=== PATIENT | male | born 1945 | race Caucasian/White ===

== ENCOUNTER 2021-12-18 06:55 | Inpatient (IN) | payer MEDICARE, BC ==
[2021-12-15 15:47] LABS: BASOPHILS % (AUTO) 0.4 % (0-1); EOSINOPHILS # (AUTO) 0.1 X10'3 (0-0.9); EOSINOPHILS % (AUTO) 1.2 % (0-6); LYMPHOCYTES % (AUTO) 17.6 % (21-51); MEAN CORPUSCULAR HEMOGLOBIN 31.1 PG (27.0-31.0); MEAN CORPUSCULAR HGB CONC 33.3 g/dL (33.0-36.5); MEAN CORPUSCULAR VOLUME 93.5 FL (78-98); MEAN PLATELET VOLUME 9.8 FL (7.4-10.4); MONOCYTES # (AUTO) 0.5 X10'3 (0-0.9); MONOCYTES % (AUTO) 9.7 % (2-12); NEUTROPHILS # (AUTO) 3.9 X10'3 (1.8-7.7); NEUTROPHILS % (AUTO) 71.1 % (42-75); PRE OP HEMATOCRIT 40.5 % (42.0-52.0); PRE OP HEMOGLOBIN 13.5 g/dL (14.0-17.9); PRE OP PLATELET COUNT 156 X10'3 (140-440); RED BLOOD COUNT 4.33 X10'6 (4.70-6.10); RED CELL DISTRIBUTION WIDTH 15.2 % (11.5-14.5)
[2021-12-15 15:47] LABS: CLARITY,URINE CLEAR (Clear); COLOR,URINE YELLOW (Yellow); GLUCOSE, URINE NEGATIVE (Neg); KETONES,URINE NEGATIVE (Neg); LEUKOCYTE ESTERASE ,URINE NEGATIVE (Neg); NITRITES, URINE NEGATIVE (Neg); OCCULT BLOOD,URINE NEGATIVE (Neg); PH,URINE 5.5 (4.8-8.0); PROTEIN,URINE NEGATIVE (Neg); UROBILINOGEN,URINE 0.2 E.U/dL (0.2-1.0)
[2021-12-15 15:51] LABS: UA COLLECTION TYPE CLN CATCH MIDSTREAM
[2021-12-15 15:55] LABS: PRE OP INR 1.1 INR; PRE OP PROTIME 11.3 SECONDS (9.0-12.0)
[2021-12-15 16:03] LABS: HEMOGLOBIN A1C 6.3 % (4.5-6.2)
[2021-12-15 16:48] LABS: ALBUMIN 3.5 G/DL (3.4-5.0); ALBUMIN/GLOBULIN RATIO 0.9 (1.1-1.5); ALKALINE PHOSPHATASE 78 IU/L (46-116); BLOOD UREA NITROGEN 37 MG/DL (7-18); BUN/CREATININE RATIO 31.9 (5.4-32.0); CALCIUM 8.5 MG/DL (8.5-10.1); CHLORIDE 98 MMOL/L (99-107); CREATININE 1.16 MG/DL (0.60-1.10); PRE OP ALT 32 U/L (30-65); PRE OP ANION GAP 6 (8-16); PRE OP AST 25 U/L (10-37); PRE OP BILIRUB, TOTAL 0.9 MG/DL (0.0-1.0); PRE OP GLUCOSE 89 MG/DL (70-104); PRE OP POTASSIUM 4.5 MMOL/L (3.4-5.1); PRE OP SODIUM 134 MMOL/L (135-145); TOTAL CARBON DIOXIDE 30.2 MMOL/L (24-32); TOTAL PROTEIN 7.2 G/DL (6.4-8.2); eGFR 62 ML/MIN
[2021-12-18] VITALS (19 sets, daily range): BP systolic 95–115; BP diastolic 55–75
[~2021-12-18] VITALS: Ht 175.3 cm; Wt 70.9 kg
[2021-12-18 06:22] LABS: ABG BASE EXCESS -0.1 mmol/L (-2.0-2.0); ABG PCO2 (T) 37.6 mmHg (35.0-48.0); ABG PO2 (T) 91.4 mmHg (75.0-100.0); ALLEN'S TEST POSITIVE; FCOHb 0.1 % (0.0-3.9); FMetHb 0.1 % (0.0-1.5); FO2Hb 96.8 % (94-97); TOTAL HEMOGLOBIN 13.9 G/dl (14.0-18.0)
[~2021-12-18 06:55] MED LIST: ATOR10TA70 PO; BUDE10.22 INH; CALC250T2 PO; CARV6.253 PO; CELE-85 PO; CLON-371 PO; CYAN10006 IM; DOCUMENT DATE & TIME OF BETA-BLOCKER PO ONE; ESZO3TAB44 PO; FERR324T23 PO; FLO0.4C PO; FLUT1BLS4 INH; FURO40TA4 PO; LEVO150T PO; LIDO700A47 TOP; LISI10TA27 PO; METH-603 PO; NITR0.4T48 SL; OMEP20CA16 PO; POTASSIUM CHLORIDE PO; RIVA20TA PO; SPIR25TA5 PO; VITAMIN D PO; ceFAZolin 1000mg inj ONE; ceFAZolin inj. 2,000 MG in dextrose 5%-water 100 ML IV ONE; epiNEPHrine 1 mg/ml inj ONE; famotidine 20mg tablet PO ONE; gabapentin 300mg capsule PO ONE; mupirocin 2% nasal ointment 1gm UD NS ONE; ringers solution, lacted 1,000 ML IV SCH; vancomycin/NS 1 GM in NS 250 ML IV ONE
[2021-12-18] MEDS ORDERED: isoflurane 100ml inhalation liquid IH ONE (10:40)
[2021-12-18] MEDS ORDERED: rocuronium 10mg/ml inj IV ONE ×2 (10:40→11:19)
[2021-12-18] MEDS ORDERED: DOBUTamine/D5W 500mg/250ml premix IV ONE (10:40)
[2021-12-18] MEDS ORDERED: NORepinephrine 8 MG in NS 250 ML BAG (32 mcg/ml) IV ONE (10:40)
[2021-12-18] MEDS ORDERED: SUfentanil 50mcg/ml 1ml amp IV ONE (10:44)
[2021-12-18] MEDS ORDERED: LORazepam 2 mg/ml vial ONE (10:51)
[2021-12-18] MEDS ORDERED: midazolam 1 mg/ML 2ml injection ONE (10:54)
[2021-12-18] MEDS ORDERED: etomidate 2mg/ml inj. ONE (11:19)
[2021-12-18] MEDS ORDERED: albumin (human) 25% 100 ML IV solution IV ONE (11:30)
[2021-12-18] MEDS ORDERED: LIDOcaine 2% (20 mg/ml) 5ml cardiac syringe ONE (11:30)
[2021-12-18] MEDS ORDERED: mannitol 12.5gm/50mL VIAL IV ONE (11:30)
[2021-12-18] MEDS ORDERED: heparin 1,000 units/ml 10ml inj ONE (11:30)
[2021-12-18] MEDS ORDERED: aminocaproic acid 250 MG/1 ML inj. ONE (11:30)
[2021-12-18] MEDS ORDERED: magnesium sulf 1 GM/2 ML ONE (11:30)
[2021-12-18] MEDS ORDERED: heparin 10,000 units/1 ML INJ ONE (11:30)
[2021-12-18] MEDS ORDERED: potassium acetate 2 mEq/1ml inj. IV ONE (11:30)
[2021-12-18] MEDS ORDERED: NORepinephrine bitart. inj. IV ONE (11:30)
[2021-12-18] MEDS ORDERED: sodium bicarbonate (8.4%) 1 mEq/ml syringe ONE (11:30)
[2021-12-18 11:55] LABS: ABG BASE EXCESS 1.4 mmol/L (-2.0-2.0); ABG HCO3 24.3 mmol/L (22.0-26.0); ABG OXYGEN SATURATION 99.6 % (94-97); ABG PCO2 32.6 mmHg (35.0-48.0); ABG PO2 236.4 mmHg (75.0-100.0); FCOHb 0.4 % (0.0-3.9); FMetHb 0.3 % (0.0-1.5); FO2Hb 98.9 % (94-97); K (ABG) 3.5 mmol/L (3.5-5.0); TOTAL HEMOGLOBIN 11.3 G/dl (14.0-18.0)
[2021-12-18 11:56] LABS: CL (ABG) 99 mmol/L (98-110); GLUCOSE (ABG) 147 mg/dl (70-105); IONIZED CA (ABG) 1.07 mmol/L (1.10-1.43)
[2021-12-18 12:49] LABS: ABG BASE EXCESS 2.6 mmol/L (-2.0-2.0); ABG HCO3 27.5 mmol/L (22.0-26.0); ABG OXYGEN SATURATION 99.8 % (94-97); ABG PCO2 44.2 mmHg (35.0-48.0); ABG PO2 416.2 mmHg (75.0-100.0); CL (ABG) 100 mmol/L (98-110); FCOHb 0.6 % (0.0-3.9); FMetHb 0.3 % (0.0-1.5); FO2Hb 98.9 % (94-97); GLUCOSE (ABG) 81 mg/dl (70-105); IONIZED CA (ABG) 1.01 mmol/L (1.10-1.43); K (ABG) 5.2 mmol/L (3.5-5.0); TOTAL HEMOGLOBIN 8.7 G/dl (14.0-18.0)
[2021-12-18 13:22] LABS: ABG BASE EXCESS VENOUS 1.9 mmol/L (-2.0 - 2.0); ABG HCO3 VENOUS 29.2 mmol/L (21.0-28.0); ABG PCO2 VENOUS 60.9 mmHg (41.0-54.0); CL (ABG) 101 mmol/L (98-110); FCOHb VENOUS 0.5 %; FHHb VENOUS 11.8 %; FMetHb VENOUS 0.3 % (0.0 - 0.5); FO2Hb VENOUS 87.4 %; GLUCOSE (ABG) 77 mg/dl (70-105); IONIZED CA (ABG) 1.04 mmol/L (1.10-1.43); TOTAL HEMOGLOBIN 9.7 G/dl (14.0-18.0)
[2021-12-18 13:43] LABS: ABG BASE EXCESS 1.2 mmol/L (-2.0-2.0); ABG HCO3 24.9 mmol/L (22.0-26.0); ABG PCO2 36.7 mmHg (35.0-48.0); ABG PO2 290.8 mmHg (75.0-100.0); CL (ABG) 101 mmol/L (98-110); GLUCOSE (ABG) 91 mg/dl (70-105); IONIZED CA (ABG) 0.95 mmol/L (1.10-1.43); K (ABG) 4.3 mmol/L (3.5-5.0)
[2021-12-18 13:46] LABS: ABG BASE EXCESS 1.1 mmol/L (-2.0-2.0); ABG OXYGEN SATURATION 99.6 % (94-97); ABG PCO2 36.5 mmHg (35.0-48.0); ABG PO2 273.2 mmHg (75.0-100.0); CL (ABG) 101 mmol/L (98-110); FCOHb 0.9 % (0.0-3.9); FMetHb 0.3 % (0.0-1.5); FO2Hb 98.4 % (94-97); GLUCOSE (ABG) 91 mg/dl (70-105); IONIZED CA (ABG) 0.95 mmol/L (1.10-1.43); K (ABG) 4.3 mmol/L (3.5-5.0); TOTAL HEMOGLOBIN 8.8 G/dl (14.0-18.0)
[2021-12-18 14:13] LABS: ABG BASE EXCESS 3.5 mmol/L (-2.0-2.0); ABG HCO3 30.2 mmol/L (22.0-26.0); ABG OXYGEN SATURATION 99.9 % (94-97); ABG PO2 498.6 mmHg (75.0-100.0); CL (ABG) 99 mmol/L (98-110); FCOHb 1.4 % (0.0-3.9); FMetHb 0.3 % (0.0-1.5); FO2Hb 98.2 % (94-97); GLUCOSE (ABG) 140 mg/dl (70-105); K (ABG) 4.8 mmol/L (3.5-5.0); TOTAL HEMOGLOBIN 7.8 G/dl (14.0-18.0)
[2021-12-18] MEDS ORDERED: albumin (Human) 5% 250ml 250 ML IV ONE ×2 (14:57)
[2021-12-18 15:03] LABS: ABG BASE EXCESS 0.3 mmol/L (-2.0-2.0); ABG HCO3 24.2 mmol/L (22.0-26.0); ABG OXYGEN SATURATION 99.8 % (94-97); ABG PCO2 35.5 mmHg (35.0-48.0); ABG PO2 432.2 mmHg (75.0-100.0); CL (ABG) 104 mmol/L (98-110); FCOHb 1.3 % (0.0-3.9); FMetHb 0.3 % (0.0-1.5); FO2Hb 98.2 % (94-97); GLUCOSE (ABG) 162 mg/dl (70-105); IONIZED CA (ABG) 1.01 mmol/L (1.10-1.43); K (ABG) 4.2 mmol/L (3.5-5.0); TOTAL HEMOGLOBIN 7.3 G/dl (14.0-18.0)
[2021-12-18 15:07] LABS: ACTIVATED CLOTTING TIME 131 SEC (101-148)
[2021-12-18 15:10] LABS: ACT @ 1.70 U 329 SEC (193-297); ACT @ 2.84 U 541 SEC (260-420); BASELINE ACT 151 SEC (101-148); PATIENT WEIGHT 66.0k KG
[2021-12-18] MEDS ORDERED: magnesium hydroxide 30ml (MOM) UD suspension PO PRN (15:35)
[2021-12-18] MEDS ORDERED: magnesium 2GM in 50ml NS 50 ML IV PRN (15:35)
[2021-12-18] MEDS ORDERED: sodium chloride 0.45% 1,000 ML IV SCH (15:35)
[2021-12-18] MEDS ORDERED: normal saline 250ml IV soln 250 ML IV PRN (15:35)
[2021-12-18] MEDS ORDERED: potassium Cl 20 mEq SR tablet PO PRN (15:35)
[2021-12-18] MEDS ORDERED: potassium CL 10mEq/100ml bag 100 ML IV PRN (15:35)
[2021-12-18] MEDS ORDERED: Neutra Phos packet PO PRN (15:35)
[2021-12-18] MEDS ORDERED: niCARDipine-NS 40mg/200ml IVPB 200 ML IV PRN (15:35)
[2021-12-18] MEDS ORDERED: bisacodyl 10mg suppository rectal RC PRN (15:35)
[2021-12-18] MEDS ORDERED: magnesium citrate 296ml oral solution PO PRN (15:35)
[2021-12-18] MEDS ORDERED: sodium phosphate inj. 15 MMOL in dextrose 5%-water 250 ML IV PRN (15:35)
[2021-12-18] MEDS ORDERED: insulin glargine (Lantus) pen - multi-dose SQ PRN (15:35)
[2021-12-18] MEDS ORDERED: mineral oil 133ml enema RC PRN (15:35)
[2021-12-18] MEDS ORDERED: metoclopramide 5 mg/ml inj IV PRN (15:35)
[2021-12-18] MEDS ORDERED: HYDROcodone/acetaminophen 10/325mg tab PO PRN (15:35)
[2021-12-18] MEDS ORDERED: magnesium 4gm in 100ml NS 100 ML IV PRN (15:35)
[2021-12-18] MEDS ORDERED: morphine 4 MG/ML inj SYRINge IV PRN (15:35)
[2021-12-18] MEDS ORDERED: LIDOcaine 5% patch TP PRN (15:35)
[2021-12-18] MEDS ORDERED: acetaminophen 325mg tablet PO PRN ×2 (15:35)
[2021-12-18] MEDS ORDERED: DOPamine 400mg/D5W 250ml 250 ML IV PRN (15:35)
[2021-12-18] MEDS ORDERED: sodium phosphate inj. 30 MMOL in dextrose 5%-water 250 ML IV PRN (15:35)
[2021-12-18] MEDS ORDERED: Insulin Reg/NS 100units/100mL 100 ML IV SCH (15:35)
[2021-12-18] MEDS ORDERED: dextrose 50%-water 50ml dispensing syringe IV PRN (15:35)
[2021-12-18] MEDS ORDERED: nitroGLYCERIN-Tridil 50MG/D5W 250 ML IV PRN (15:35)
[2021-12-18 15:38] LABS: APTT 46 SECONDS (22-32); BASOPHILS % (AUTO) 0.1 % (0-1); EOSINOPHILS % (AUTO) 0.2 % (0-6); LYMPHOCYTES # (AUTO) 0.6 X10'3 (1.1-4.8); LYMPHOCYTES % (AUTO) 5.9 % (21-51); MEAN CORPUSCULAR HEMOGLOBIN 31.9 PG (27.0-31.0); MEAN CORPUSCULAR HGB CONC 34.3 g/dL (33.0-36.5); MEAN CORPUSCULAR VOLUME 93.2 FL (78-98); MEAN PLATELET VOLUME 9.3 FL (7.4-10.4); MONOCYTES # (AUTO) 0.1 X10'3 (0-0.9); MONOCYTES % (AUTO) 1.2 % (2-12); NEUTROPHILS # (AUTO) 9.7 X10'3 (1.8-7.7); NEUTROPHILS % (AUTO) 92.6 % (42-75); PLATELET COUNT 60 X10'3 (140-440); RED BLOOD COUNT 2.19 X10'6 (4.70-6.10); RED CELL DISTRIBUTION WIDTH 14.9 % (11.5-14.5); WHITE BLOOD COUNT 10.5 X10'3 (4.5-11.0)
[2021-12-18 15:44] LABS: HEMATOCRIT 20.4 % (42.0-52.0)
[2021-12-18] MEDS ORDERED: albuterol 2.5 MG/3 ML nebule NEB PRN (15:45)
[2021-12-18] MEDS ORDERED: DOBUTamine-DoBUTrex 500mg/D5W 250 ML IV SCH (16:00)
[2021-12-18 16:01] LABS: ABG BASE EXCESS 1.4 mmol/L (-2.0-2.0); ABG HCO3 25.2 mmol/L (22.0-26.0); ABG OXYGEN SATURATION 98.8 % (94-97); ABG PO2 (T) 331.8 mmHg (75.0-100.0); FCOHb 0.2 % (0.0-3.9); FMetHb 0.6 % (0.0-1.5); PATIENT TEMPERATURE 36.7; PEEP 5 cm H2O; RESPIRATORY RATE 12 b/min; TIDAL VOLUME 650 mL; TOTAL HEMOGLOBIN 10.2 G/dl (14.0-18.0)
[2021-12-18 16:21] LABS: ALANINE AMINOTRANSFERASE 20 U/L (12-78); ALBUMIN 2.8 G/DL (3.4-5.0); ALBUMIN/GLOBULIN RATIO 1.5 (1.1-1.5); ALKALINE PHOSPHATASE 35 IU/L (46-116); ANION GAP 7 (8-16); ASPARTATE AMINO TRANSFERASE 47 U/L (10-37); BILIRUBIN,TOTAL 1.1 MG/DL (0.1-1.0); BLOOD UREA NITROGEN 28 MG/DL (7-18); BUN/CREATININE RATIO 38.4 (5.4-32.0); CALCIUM 7.2 MG/DL (8.5-10.1); CHLORIDE 108 MMOL/L (99-107); CREATININE 0.73 MG/DL (0.60-1.10); GLUCOSE 163 MG/DL (70-104); MAGNESIUM 3.2 MG/DL (1.5-2.4); PHOSPHORUS 1.5 MG/DL (2.3-4.5); SODIUM 141 MMOL/L (135-145); TOTAL CARBON DIOXIDE 25.6 MMOL/L (24-32); TOTAL PROTEIN 4.7 G/DL (6.4-8.2); eGFR > 90 ML/MIN
[2021-12-18 16:23] LABS: POTASSIUM 4.1 MMOL/L (3.5-5.1)
[2021-12-18] MEDS: ceFAZolin/D5W- 1GM premix 50 ML IV SCH (16:38)
[2021-12-18 17:16] LABS: BASOPHILS % (AUTO) 0.1 % (0-1); EOSINOPHILS % (AUTO) 0.1 % (0-6); LYMPHOCYTES # (AUTO) 0.6 X10'3 (1.1-4.8); LYMPHOCYTES % (AUTO) 4.4 % (21-51); MEAN CORPUSCULAR HEMOGLOBIN 30.4 PG (27.0-31.0); MEAN CORPUSCULAR HGB CONC 33.6 g/dL (33.0-36.5); MEAN CORPUSCULAR VOLUME 90.5 FL (78-98); MEAN PLATELET VOLUME 8.1 FL (7.4-10.4); MONOCYTES # (AUTO) 0.5 X10'3 (0-0.9); NEUTROPHILS # (AUTO) 12.3 X10'3 (1.8-7.7); NEUTROPHILS % (AUTO) 91.4 % (42-75); PLATELET COUNT 141 X10'3 (140-440); RED BLOOD COUNT 2.98 X10'6 (4.70-6.10); RED CELL DISTRIBUTION WIDTH 16.1 % (11.5-14.5); WHITE BLOOD COUNT 13.4 X10'3 (4.5-11.0)
[2021-12-18] MEDS: albumin (Human) 5% 250ml 250 ML IV PRN ×3 (17:44→21:59)
[2021-12-18] MEDS: Insulin Reg/NS 100units/100mL 100 ML IV SCH (18:05)
--- NOTE | 2021-12-18 18:21 | NUR ---
Problems reprioritized. Patient report given, questions answered & plan of care reviewed with KADE Goss.
[2021-12-18 18:26] LABS: TOTAL CELLS COUNTED 100
[2021-12-18 18:28] LABS: PLATELET ESTIMATE DECREASED
[2021-12-18 18:29] LABS: ANISOCYTOSIS FEW; ELLIPTOCYTES FEW
[2021-12-18 18:30] LABS: SMUDGE CELLS 1+
--- NOTE | 2021-12-18 18:30 | NUR ---
Patient in room CICU 2008. I have received report from KADE Nascimento and had the opportunity to ask questions and assume patient care.
[2021-12-18] MEDS: albuterol 2.5 MG/3 ML nebule NEB SCH (19:24)
[2021-12-18] MEDS: sennosides/docusate sodium tablet PO SCH ×2 (20:00→20:06)
[2021-12-18] MEDS ORDERED: budesonide 0.5mg/2ml UD nebule IH SCH (20:00)
[2021-12-18] MEDS: atorvastatin 10mg tablet PO SCH ×2 (20:06→20:58)
[2021-12-18] MEDS: gabapentin 300mg capsule PO SCH ×2 (20:06→20:58)
[2021-12-18] MEDS: vancomycin/NS 1 GM ADD-VANTAGE 250 ML IV SCH (20:06)
[2021-12-18] MEDS: mupirocin 2% nasal ointment 1gm UD NS SCH (20:06)
--- NOTE | 2021-12-18 21:00 | NUR ---
Unable to give PO medications, patient's OG found to not be in stomach upon auscultation, several attempts to insert OG and was unsuccessful.
[2021-12-18 21:39] LABS: BASOPHILS % (AUTO) 0.1 % (0-1); EOSINOPHILS % (AUTO) 0 % (0-6); HEMATOCRIT 27.5 % (42.0-52.0); HEMOGLOBIN 9.2 g/dl (14.0-17.9); LYMPHOCYTES # (AUTO) 0.2 X10'3 (1.1-4.8); LYMPHOCYTES % (AUTO) 1.2 % (21-51); MEAN CORPUSCULAR HEMOGLOBIN 30.3 PG (27.0-31.0); MEAN CORPUSCULAR HGB CONC 33.4 g/dL (33.0-36.5); MEAN CORPUSCULAR VOLUME 90.6 FL (78-98); MEAN PLATELET VOLUME 8.1 FL (7.4-10.4); MONOCYTES # (AUTO) 0.5 X10'3 (0-0.9); MONOCYTES % (AUTO) 3.4 % (2-12); NEUTROPHILS % (AUTO) 95.3 % (42-75); PLATELET COUNT 136 X10'3 (140-440); RED BLOOD COUNT 3.04 X10'6 (4.70-6.10); RED CELL DISTRIBUTION WIDTH 16.3 % (11.5-14.5); WHITE BLOOD COUNT 14.7 X10'3 (4.5-11.0)
[2021-12-18] MEDS ORDERED: NORepinephrine 8mg/ 250ml NS 250 ML IV PRN (21:45)
[2021-12-18 21:57] LABS: ALBUMIN 3.2 G/DL (3.4-5.0); ANION GAP 8 (8-16); BLOOD UREA NITROGEN 28 MG/DL (7-18); BUN/CREATININE RATIO 37.8 (5.4-32.0); CALCIUM 6.8 MG/DL (8.5-10.1); CHLORIDE 110 MMOL/L (99-107); CREATININE 0.74 MG/DL (0.60-1.10); GLUCOSE 143 MG/DL (70-104); MAGNESIUM 2.7 MG/DL (1.5-2.4); PHOSPHORUS 2.4 MG/DL (2.3-4.5); SODIUM 142 MMOL/L (135-145); TOTAL CARBON DIOXIDE 23.7 MMOL/L (24-32); eGFR > 90 ML/MIN
[2021-12-18 22:01] LABS: POTASSIUM 4.3 MMOL/L (3.5-5.1)
[2021-12-18] MEDS: potassium Cl 20mEq/100mL bag 100 ML IV PRN (22:26)
[2021-12-19] VITALS (24 sets, daily range): BP systolic 97–165; BP diastolic 61–95
[2021-12-19] MEDS: potassium Cl 20mEq/100mL bag 100 ML IV PRN (00:30)
[2021-12-19] MEDS: ceFAZolin/D5W- 1GM premix 50 ML IV SCH ×3 (00:32→15:05)
[2021-12-19] MEDS: morphine 2 MG/ML inj. syringe IV PRN ×3 (00:39→18:46)
[2021-12-19] MEDS: albuterol 2.5 MG/3 ML nebule NEB SCH ×3 (01:19→16:43)
[2021-12-19 01:48] LABS: ABG BASE EXCESS -2.6 mmol/L (-2.0-2.0); ABG HCO3 21.8 mmol/L (22.0-26.0); ABG OXYGEN SATURATION 98.1 % (94-97); ABG PCO2 (T) 37.8 mmHg (35.0-48.0); ABG PO2 (T) 146.4 mmHg (75.0-100.0); FCOHb 0.2 % (0.0-3.9); FMetHb 0.6 % (0.0-1.5); FO2Hb 97.3 % (94-97); TOTAL HEMOGLOBIN 9.6 G/dl (14.0-18.0)
[2021-12-19 03:10] LABS: BASOPHILS % (AUTO) 0.1 % (0-1); EOSINOPHILS % (AUTO) 0 % (0-6); HEMATOCRIT 25.6 % (42.0-52.0); HEMOGLOBIN 8.6 g/dl (14.0-17.9); LYMPHOCYTES # (AUTO) 0.2 X10'3 (1.1-4.8); LYMPHOCYTES % (AUTO) 2.3 % (21-51); MEAN CORPUSCULAR HEMOGLOBIN 30.7 PG (27.0-31.0); MEAN CORPUSCULAR HGB CONC 33.7 g/dL (33.0-36.5); MEAN CORPUSCULAR VOLUME 90.9 FL (78-98); MEAN PLATELET VOLUME 8.4 FL (7.4-10.4); MONOCYTES # (AUTO) 0.3 X10'3 (0-0.9); MONOCYTES % (AUTO) 3.1 % (2-12); NEUTROPHILS # (AUTO) 9.2 X10'3 (1.8-7.7); NEUTROPHILS % (AUTO) 94.5 % (42-75); PLATELET COUNT 119 X10'3 (140-440); RED BLOOD COUNT 2.81 X10'6 (4.70-6.10); RED CELL DISTRIBUTION WIDTH 16.7 % (11.5-14.5); WHITE BLOOD COUNT 9.7 X10'3 (4.5-11.0)
[2021-12-19 03:21] LABS: APTT 30 SECONDS (22-32)
[2021-12-19 03:30] LABS: ALANINE AMINOTRANSFERASE 20 U/L (12-78); ALBUMIN 3.3 G/DL (3.4-5.0); ALBUMIN/GLOBULIN RATIO 1.7 (1.1-1.5); ALKALINE PHOSPHATASE 30 IU/L (46-116); ANION GAP 6 (8-16); ASPARTATE AMINO TRANSFERASE 52 U/L (10-37); BILIRUBIN,TOTAL 0.9 MG/DL (0.1-1.0); BLOOD UREA NITROGEN 27 MG/DL (7-18); BUN/CREATININE RATIO 32.5 (5.4-32.0); CALCIUM 6.9 MG/DL (8.5-10.1); CHLORIDE 111 MMOL/L (99-107); CREATININE 0.83 MG/DL (0.60-1.10); GLUCOSE 116 MG/DL (70-104); MAGNESIUM 2.8 MG/DL (1.5-2.4); PHOSPHORUS 3.1 MG/DL (2.3-4.5); POTASSIUM 4.8 MMOL/L (3.5-5.1); SODIUM 141 MMOL/L (135-145); TOTAL CARBON DIOXIDE 24.3 MMOL/L (24-32); TOTAL PROTEIN 5.2 G/DL (6.4-8.2); eGFR > 90 ML/MIN
[2021-12-19] MEDS ORDERED: albuterol 2.5 MG/3 ML nebule NEB SCH (03:57)
[2021-12-19] MEDS ORDERED: budesonide 0.5mg/2ml UD nebule IH SCH (03:58)
--- NOTE | 2021-12-19 06:06 | NUR ---
Problems reprioritized. Patient report given, questions answered & plan of care reviewed with KADE Nascimento.
[2021-12-19 06:16] LABS: ABG PCO2 60.3 mmHg (35.0-48.0)
[2021-12-19] MEDS: levoTHYROXINE 25mcg tablet PO SCH (06:32)
--- NOTE | 2021-12-19 06:35 | NUR ---
Per patient, he normally takes his Synthroid at 0300 every morning. He has not had it yet and he states that it "makes me feel weird". He asked that RN give it to him now and then have it schedule for 0300. Called pharmacy and they stated okay to give dose now and that they would retime the next dose for tomorrow morning at 0300.
--- NOTE | 2021-12-19 06:37 | NUR ---
Patient in room CICU 2009. I have received report from KADE Goss and had the opportunity to ask questions and assume patient care.
[2021-12-19] MEDS ORDERED: non-formulary drug (Fluticasone/Umeclidin/Vilanter (Trelegy Ellipta 100-62.5-25) 1 PUFFS) PO SCH (08:00)
[2021-12-19] MEDS: mupirocin 2% nasal ointment 1gm UD NS SCH ×2 (08:27→20:32)
[2021-12-19] MEDS: vancomycin/NS 1 GM ADD-VANTAGE 250 ML IV SCH ×2 (08:27→20:33)
[2021-12-19] MEDS: gabapentin 300mg capsule PO SCH ×3 (08:28→20:32)
[2021-12-19] MEDS: cholecalciferol (vitamin D3) 1,000 unit (25mcg) tablet PO SCH (08:28)
[2021-12-19] MEDS: metoprolol tartrate 12.5mg (1/2 tablet) PO SCH ×2 (08:28→20:32)
[2021-12-19] MEDS: sennosides/docusate sodium tablet PO SCH ×2 (08:28→20:32)
[2021-12-19] MEDS: tamsulosin 0.4mg capsule PO SCH (08:28)
[2021-12-19] MEDS: aspirin 81mg tab.chew PO SCH (08:28)
[2021-12-19] MEDS: ferrous gluconate 324mg tablet PO SCH (08:31)
[2021-12-19] MEDS: ondansetron/PF 4mg/2ml inj IV PRN ×2 (08:32→18:46)
--- NOTE | 2021-12-19 08:44 | NUR ---
PATIENT CURRENTLY EATING BREAKFAST. PATIENT SHOWING NO SIGNS OF SOB/DISTRESS. RT WILL RETURN AT A LATER TIME FOR SCHEDULED SVN TX. Addendum: 12/19/21 at 0845 by Tamiko Goodman RT Amended: Links added.
--- NOTE | 2021-12-19 10:00 | NUR ---
Patient states that he can not get up and walk because he has special shoes that he wears for his back support that he didn't bring with him. His states that she will bring them tomorrow. Patient was able to get to a chair.
[2021-12-19] MEDS: methadone 10mg tablet PO SCH ×2 (10:42→20:33)
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
--- NOTE | 2021-12-19 13:37 | NUR ---
F/u 12/19: KADE ORTIZ pt has lost weight in past and dentures no longer fit making mouth sore requesting softer to chew foods as well as ONS since drinks Premier Proteins at home. GUERRERO d/w board certified family physician allowed to bring Premier Protein from home if pt would like. Per RN pt PO 100% first NCS liquids post-op w/ ~75% lunch solids; GUERRERO recommends Pako smoothie BID if MD agreeable for wound healing post-op. Dietary notified to send soft to chew foods for ease of PO. Addendum: 12/19/21 [address] Amended: Links added.
[2021-12-19] MEDS: HYDROcodone/acetaminophen 10/325mg tab PO PRN (15:05)
[2021-12-19] MEDS: Insulin Reg/NS 100units/100mL 100 ML IV SCH (16:31)
--- NOTE | 2021-12-19 16:50 | NUR ---
Patient has some bleeding present at midline incision site. Area marked so we can watch the drainage.
[2021-12-19] MEDS: JUVEN Smoothie Arginine/Glut./Ca2+Bmb (Juven 19.3pkt) 240ml cup PO SCH (17:40)
--- NOTE | 2021-12-19 18:25 | NUR ---
Problems reprioritized. Patient report given, questions answered & plan of care reviewed with KADE Goss.
--- NOTE | 2021-12-19 18:30 | NUR ---
Patient in room CICU 2008. I have received report from KADE Nascimento and had the opportunity to ask questions and assume patient care.
[2021-12-19] MEDS ORDERED: propofol 1000mg/100ml bottle 100 ML IV ONE (18:43)
--- NOTE | 2021-12-19 19:30 | NUR ---
Pt's sternal incision found to be oozing towards the bottom of the dressing. pressure applied. dressing was taken down and small bleed located, pressure applied. Steri strips were then applied, followed by an island dressing and a pressure dressing over the affected area. bleeding contained, will continue to monitor.
[2021-12-19] MEDS: atorvastatin 10mg tablet PO SCH (20:32)
[2021-12-19] MEDS ORDERED: TYPE IN GENERIC & BRAND NAME OF PATIENT MED STRENGTH & FORM PO SCH (21:00)
[2021-12-19] MEDS: clonazePAM 1mg tablet PO PRN (21:19)
[2021-12-19] MEDS: ESZOPICLONE 3 MG PO PRN (21:19)
[2021-12-19 21:33] LABS: HEMATOCRIT 24.8 % (42.0-52.0); HEMOGLOBIN 8.2 g/dl (14.0-17.9); MEAN CORPUSCULAR HEMOGLOBIN 30.2 PG (27.0-31.0); MEAN CORPUSCULAR HGB CONC 33.1 g/dL (33.0-36.5); MEAN CORPUSCULAR VOLUME 91.3 FL (78-98); MEAN PLATELET VOLUME 8.6 FL (7.4-10.4); PLATELET COUNT 106 X10'3 (140-440); RED BLOOD COUNT 2.72 X10'6 (4.70-6.10); RED CELL DISTRIBUTION WIDTH 17.7 % (11.5-14.5); WHITE BLOOD COUNT 11.4 X10'3 (4.5-11.0)
[2021-12-19] MEDS: FLUTICASONE PO SCH (21:34)
[2021-12-19] MEDS: UMECLIDIN PO SCH (21:34)
[2021-12-19] MEDS: VILANTER PO SCH (21:34)
[2021-12-20] VITALS (14 sets, daily range): BP systolic 92–137; BP diastolic 8–90
[2021-12-20] MEDS: ceFAZolin/D5W- 1GM premix 50 ML IV SCH (00:11)
[2021-12-20 02:53] LABS: BASOPHILS % (AUTO) 0.1 % (0-1); EOSINOPHILS % (AUTO) 0 % (0-6); HEMATOCRIT 22.9 % (42.0-52.0); HEMOGLOBIN 7.7 g/dl (14.0-17.9); LYMPHOCYTES # (AUTO) 0.5 X10'3 (1.1-4.8); LYMPHOCYTES % (AUTO) 5.9 % (21-51); MEAN CORPUSCULAR HEMOGLOBIN 30.7 PG (27.0-31.0); MEAN CORPUSCULAR HGB CONC 33.6 g/dL (33.0-36.5); MEAN CORPUSCULAR VOLUME 91.2 FL (78-98); MEAN PLATELET VOLUME 8.5 FL (7.4-10.4); MONOCYTES # (AUTO) 0.6 X10'3 (0-0.9); MONOCYTES % (AUTO) 6.8 % (2-12); NEUTROPHILS # (AUTO) 7.8 X10'3 (1.8-7.7); NEUTROPHILS % (AUTO) 87.2 % (42-75); PLATELET COUNT 92 X10'3 (140-440); RED BLOOD COUNT 2.51 X10'6 (4.70-6.10); RED CELL DISTRIBUTION WIDTH 17.7 % (11.5-14.5)
[2021-12-20 03:08] LABS: ALBUMIN 3.1 G/DL (3.4-5.0); ANION GAP 3 (8-16); BLOOD UREA NITROGEN 27 MG/DL (7-18); BUN/CREATININE RATIO 31.8 (5.4-32.0); CALCIUM 7.1 MG/DL (8.5-10.1); CHLORIDE 104 MMOL/L (99-107); CREATININE 0.85 MG/DL (0.60-1.10); GLUCOSE 123 MG/DL (70-104); MAGNESIUM 2.5 MG/DL (1.5-2.4); PHOSPHORUS 3.1 MG/DL (2.3-4.5); POTASSIUM 5.1 MMOL/L (3.5-5.1); SODIUM 133 MMOL/L (135-145); TOTAL CARBON DIOXIDE 25.6 MMOL/L (24-32); eGFR 88 ML/MIN
--- NOTE | 2021-12-20 06:32 | NUR ---
Problems reprioritized. Patient report given, questions answered & plan of care reviewed with KADE Calhoun.
[2021-12-20] MEDS: cholecalciferol (vitamin D3) 1,000 unit (25mcg) tablet PO SCH (07:08)
[2021-12-20] MEDS: levoTHYROXINE 25mcg tablet PO SCH (07:09)
[2021-12-20] MEDS: tamsulosin 0.4mg capsule PO SCH (07:10)
[2021-12-20] MEDS: sennosides/docusate sodium tablet PO SCH ×2 (07:12→20:16)
[2021-12-20] MEDS: pantoprazole 40mg Tablet.DR PO SCH (07:12)
[2021-12-20] MEDS: gabapentin 300mg capsule PO SCH ×2 (07:13→13:00)
[2021-12-20] MEDS: methadone 10mg tablet PO SCH ×2 (07:13→20:16)
[2021-12-20] MEDS: ferrous gluconate 324mg tablet PO SCH (07:14)
[2021-12-20] MEDS: mupirocin 2% nasal ointment 1gm UD NS SCH (07:17)
[2021-12-20] MEDS: metoprolol tartrate 12.5mg (1/2 tablet) PO SCH ×2 (07:19→20:15)
[2021-12-20] MEDS: JUVEN Smoothie Arginine/Glut./Ca2+Bmb (Juven 19.3pkt) 240ml cup PO SCH ×2 (07:30→08:30)
[2021-12-20] MEDS: potassium Cl 20 mEq SR tablet PO SCH ×2 (08:00→20:00)
[2021-12-20] MEDS ORDERED: (Fluticasone/Umeclidin/Vilanter (Trelegy Ellipta 100-62.5-25) 1 PUFFS) PO SCH (08:00)
[2021-12-20] MEDS: magnesium Cl slow-release 64mg tablet PO SCH ×2 (08:00→20:00)
[2021-12-20] MEDS: aspirin 81mg tab.chew PO SCH (08:19)
[2021-12-20] MEDS: ondansetron/PF 4mg/2ml inj IV PRN (08:48)
--- NOTE | 2021-12-20 09:00 | NUR ---
Baloon deflated, chacon removed. No s/s of trauma. Pt tolerated procedure well.
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
--- NOTE | 2021-12-20 12:20 | NUR ---
Called and gave handoff telephone report to tele nurse KADE Garcia.
--- NOTE | 2021-12-20 13:00 | NUR ---
Patient in room PCU 3020. I have received report from Loyda PRAKASH RN and had the opportunity to ask questions and assume patient care.
--- NOTE | 2021-12-20 13:36 | NUR ---
Pt was transferred via wheelchair with tele monitor on, on room air. Pt was accompanied by daughter. All belongings were transferred with pt in pt's labeled bags, including phone, phone floor care technician, dentures and glasses. Vital signs remained stable to patient's baseline throughout transport. Pt was transferred to tele bed locked/lowest position/side rails up x2, and handed the call light. Pt and pt's chart were received at bedside by tele nurse KADE Garcia.
--- NOTE | 2021-12-20 14:34 | NUR ---
Shift note: I precepted Loyda RN today, have reviewed her documentation and agree with what she has documented. Pt was transferred to 3020 and bedside report completed by Loyda BRAUN.
[2021-12-20] MEDS ORDERED: morphine 2 MG/ML inj. syringe IV ONE (15:20)
--- NOTE | 2021-12-20 18:57 | NUR ---
Problems reprioritized. Patient report given, questions answered & plan of care reviewed with Angeles BRAUN, patient stable at transfer of care.
[2021-12-20] MEDS: atorvastatin 10mg tablet PO SCH (20:16)
[2021-12-20] MEDS: UMECLIDIN PO SCH (21:00)
[2021-12-20] MEDS: VILANTER PO SCH (21:00)
[2021-12-20] MEDS: FLUTICASONE PO SCH (21:00)
[2021-12-20] MEDS: clonazePAM 1mg tablet PO PRN (22:51)
[2021-12-20] MEDS: ESZOPICLONE 3 MG PO PRN (23:17)
[2021-12-21 02:00] VITALS: BP 101/61
[2021-12-21 06:00] VITALS: BP 101/77
--- NOTE | 2021-12-21 06:05 | NUR ---
Patient in room PCU 3020. I have received report from Angeles BRAUN and had the opportunity to ask questions and assume patient care.
[2021-12-21 06:50] LABS: BASOPHILS % (AUTO) 0.1 % (0-1); EOSINOPHILS % (AUTO) 0 % (0-6); HEMATOCRIT 23.3 % (42.0-52.0); HEMOGLOBIN 7.9 g/dl (14.0-17.9); LYMPHOCYTES # (AUTO) 0.8 X10'3 (1.1-4.8); LYMPHOCYTES % (AUTO) 9.9 % (21-51); MEAN CORPUSCULAR HEMOGLOBIN 30.8 PG (27.0-31.0); MEAN CORPUSCULAR HGB CONC 33.8 g/dL (33.0-36.5); MEAN CORPUSCULAR VOLUME 91.2 FL (78-98); MEAN PLATELET VOLUME 8.8 FL (7.4-10.4); MONOCYTES # (AUTO) 0.6 X10'3 (0-0.9); NEUTROPHILS # (AUTO) 6.7 X10'3 (1.8-7.7); PLATELET COUNT 80 X10'3 (140-440); RED BLOOD COUNT 2.55 X10'6 (4.70-6.10); RED CELL DISTRIBUTION WIDTH 16.4 % (11.5-14.5)
[2021-12-21 06:54] LABS: ANION GAP 4 (8-16); BLOOD UREA NITROGEN 20 MG/DL (7-18); CALCIUM 7.3 MG/DL (8.5-10.1); CHLORIDE 103 MMOL/L (99-107); CREATININE 0.74 MG/DL (0.60-1.10); GLUCOSE 86 MG/DL (70-104); POTASSIUM 4.5 MMOL/L (3.5-5.1); SODIUM 136 MMOL/L (135-145); TOTAL CARBON DIOXIDE 28.9 MMOL/L (24-32); eGFR > 90 ML/MIN
[2021-12-21] MEDS: JUVEN Smoothie Arginine/Glut./Ca2+Bmb (Juven 19.3pkt) 240ml cup PO SCH ×2 (07:30→18:30)
[2021-12-21] MEDS: magnesium Cl slow-release 64mg tablet PO SCH ×2 (08:00→20:00)
[2021-12-21] MEDS: potassium Cl 20 mEq SR tablet PO SCH ×2 (08:00→20:00)
[2021-12-21] MEDS: pantoprazole 40mg Tablet.DR PO SCH (08:19)
[2021-12-21] MEDS: sennosides/docusate sodium tablet PO SCH ×2 (08:19→20:00)
[2021-12-21] MEDS: ferrous gluconate 324mg tablet PO SCH (08:27)
[2021-12-21] MEDS: cholecalciferol (vitamin D3) 1,000 unit (25mcg) tablet PO SCH (08:28)
[2021-12-21] MEDS: aspirin 81mg tab.chew PO SCH (08:28)
[2021-12-21] MEDS: levoTHYROXINE 25mcg tablet PO SCH (08:28)
[2021-12-21] MEDS: tamsulosin 0.4mg capsule PO SCH (08:28)
[2021-12-21] MEDS: methadone 10mg tablet PO SCH ×2 (08:28→20:15)
[2021-12-21] MEDS: furosemide 40mg/4ml inj IV SCH ×2 (08:29→20:14)
[2021-12-21] MEDS: metoprolol tartrate 12.5mg (1/2 tablet) PO SCH (08:30)
[2021-12-21 11:00] VITALS: BP 97/70
[2021-12-21 15:00] VITALS: BP 103/78
[2021-12-21] MEDS: HYDROcodone/acetaminophen 10/325mg tab PO PRN (15:32)
[2021-12-21] MEDS ORDERED: ondansetron 4mg rapidly disintigrating tab PO PRN (17:40)
[2021-12-21 18:30] VITALS: BP 126/83
--- NOTE | 2021-12-21 18:44 | NUR ---
Problems reprioritized. Patient report given, questions answered & plan of care reviewed with Pat RN, patient stable at transfer of care.
[2021-12-21] MEDS: UMECLIDIN PO SCH (19:50)
[2021-12-21] MEDS: FLUTICASONE PO SCH (19:50)
[2021-12-21] MEDS: VILANTER PO SCH (19:50)
[2021-12-21] MEDS: rivaroxaban 20mg tablet PO SCH (20:14)
[2021-12-21] MEDS: atorvastatin 10mg tablet PO SCH (20:14)
[2021-12-21] MEDS: carvedilol 6.25mg tablet PO SCH (20:15)
--- NOTE | 2021-12-21 21:00 | NUR ---
refuses accuchecks Addendum: 12/22/21 at 0250 by Emily Celis RN Amended: Links added.
[2021-12-21 22:00] VITALS: BP 111/88
[2021-12-21] MEDS: clonazePAM 1mg tablet PO PRN (22:22)
[2021-12-21] MEDS: ESZOPICLONE 3 MG PO PRN (22:45)
[2021-12-22 02:00] VITALS: BP 93/62
[2021-12-22] MEDS: levoTHYROXINE 25mcg tablet PO SCH (05:40)
[2021-12-22 06:51] LABS: BASOPHILS % (AUTO) 0.1 % (0-1); EOSINOPHILS % (AUTO) 0.3 % (0-6); HEMATOCRIT 23.1 % (42.0-52.0); HEMOGLOBIN 7.9 g/dl (14.0-17.9); LYMPHOCYTES # (AUTO) 0.8 X10'3 (1.1-4.8); MEAN CORPUSCULAR HEMOGLOBIN 31.3 PG (27.0-31.0); MEAN CORPUSCULAR VOLUME 91.8 FL (78-98); MEAN PLATELET VOLUME 9.2 FL (7.4-10.4); MONOCYTES # (AUTO) 0.5 X10'3 (0-0.9); MONOCYTES % (AUTO) 7.5 % (2-12); NEUTROPHILS # (AUTO) 5.7 X10'3 (1.8-7.7); NEUTROPHILS % (AUTO) 81.1 % (42-75); PLATELET COUNT 79 X10'3 (140-440); RED BLOOD COUNT 2.51 X10'6 (4.70-6.10); RED CELL DISTRIBUTION WIDTH 16.4 % (11.5-14.5)
[2021-12-22 07:00] VITALS: BP 101/68
[2021-12-22 07:19] LABS: ANION GAP 7 (8-16); BLOOD UREA NITROGEN 25 MG/DL (7-18); BUN/CREATININE RATIO 31.3 (5.4-32.0); CALCIUM 7.1 MG/DL (8.5-10.1); CHLORIDE 100 MMOL/L (99-107); GLUCOSE 92 MG/DL (70-104); POTASSIUM 3.7 MMOL/L (3.5-5.1); SODIUM 138 MMOL/L (135-145); eGFR > 90 ML/MIN
[2021-12-22] MEDS: magnesium Cl slow-release 64mg tablet PO SCH ×2 (08:00→20:46)
[2021-12-22] MEDS: cholecalciferol (vitamin D3) 1,000 unit (25mcg) tablet PO SCH (08:08)
[2021-12-22] MEDS: tamsulosin 0.4mg capsule PO SCH (08:09)
[2021-12-22] MEDS: ferrous gluconate 324mg tablet PO SCH (08:09)
[2021-12-22] MEDS: methadone 10mg tablet PO SCH ×2 (08:10→20:46)
[2021-12-22] MEDS: sennosides/docusate sodium tablet PO SCH ×2 (08:10→20:45)
[2021-12-22] MEDS: pantoprazole 40mg Tablet.DR PO SCH (08:10)
[2021-12-22] MEDS: carvedilol 6.25mg tablet PO SCH ×2 (08:10→20:46)
[2021-12-22] MEDS: aspirin 81mg tab.chew PO SCH (08:10)
[2021-12-22] MEDS: potassium Cl 20 mEq SR tablet PO SCH ×2 (08:11→20:46)
[2021-12-22] MEDS: JUVEN Smoothie Arginine/Glut./Ca2+Bmb (Juven 19.3pkt) 240ml cup PO SCH ×2 (08:11→17:30)
[2021-12-22] MEDS: furosemide 40mg/4ml inj IV SCH ×2 (08:11→20:46)
[2021-12-22 11:00] VITALS: BP 94/59
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
[2021-12-22 18:00] VITALS: BP 112/76
--- NOTE | 2021-12-22 18:14 | NUR ---
Patient in room PCU 3020. I have received report from Hernesto ALFONSO and had the opportunity to ask questions and assume patient care.
[2021-12-22] MEDS: FLUTICASONE PO SCH (19:41)
[2021-12-22] MEDS: UMECLIDIN PO SCH (19:41)
[2021-12-22] MEDS: VILANTER PO SCH (19:41)
[2021-12-22] MEDS: atorvastatin 10mg tablet PO SCH (20:45)
[2021-12-22] MEDS: rivaroxaban 20mg tablet PO SCH (20:45)
[2021-12-22 20:47] VITALS: BP 103/70
--- NOTE | 2021-12-22 21:00 | NUR ---
Pt declining hs Blood glucose testing.
[2021-12-22 22:00] VITALS: BP 97/72
[2021-12-22] MEDS: ESZOPICLONE 3 MG PO PRN (23:19)
[2021-12-23] VITALS (7 sets, daily range): BP systolic 86–125; BP diastolic 46–82
--- NOTE | 2021-12-23 06:39 | NUR ---
Problems reprioritized. Patient report given, questions answered & plan of care reviewed with Kayleigh BRAUN.
[2021-12-23] MEDS: levoTHYROXINE 25mcg tablet PO SCH (07:12)
[2021-12-23] MEDS: ferrous gluconate 324mg tablet PO SCH (07:13)
[2021-12-23] MEDS: tamsulosin 0.4mg capsule PO SCH (07:13)
[2021-12-23] MEDS: methadone 10mg tablet PO SCH ×2 (07:13→21:18)
[2021-12-23] MEDS: sennosides/docusate sodium tablet PO SCH ×2 (07:14→21:19)
[2021-12-23] MEDS: potassium Cl 20 mEq SR tablet PO SCH ×2 (07:14→21:19)
[2021-12-23] MEDS: magnesium Cl slow-release 64mg tablet PO SCH ×2 (07:14→21:19)
[2021-12-23] MEDS: pantoprazole 40mg Tablet.DR PO SCH (07:14)
[2021-12-23] MEDS: cholecalciferol (vitamin D3) 1,000 unit (25mcg) tablet PO SCH (07:14)
[2021-12-23] MEDS: furosemide 40mg/4ml inj IV SCH ×2 (07:15→20:00)
[2021-12-23] MEDS: carvedilol 6.25mg tablet PO SCH ×2 (07:16→20:00)
--- NOTE | 2021-12-23 07:25 | NUR ---
Patient in room PCU 3020. I have received report from KADE Hubbard and had the opportunity to ask questions and assume patient care.
[2021-12-23] MEDS: JUVEN Smoothie Arginine/Glut./Ca2+Bmb (Juven 19.3pkt) 240ml cup PO SCH ×2 (07:30→18:21)
[2021-12-23 08:03] LABS: BASOPHILS % (AUTO) 0.3 % (0-1); EOSINOPHILS # (AUTO) 0.1 X10'3 (0-0.9); EOSINOPHILS % (AUTO) 0.9 % (0-6); HEMATOCRIT 27.1 % (42.0-52.0); HEMOGLOBIN 9.1 g/dl (14.0-17.9); LYMPHOCYTES # (AUTO) 0.8 X10'3 (1.1-4.8); LYMPHOCYTES % (AUTO) 10.9 % (21-51); MEAN CORPUSCULAR HEMOGLOBIN 31.4 PG (27.0-31.0); MEAN CORPUSCULAR HGB CONC 33.7 g/dL (33.0-36.5); MEAN PLATELET VOLUME 9.5 FL (7.4-10.4); MONOCYTES # (AUTO) 0.6 X10'3 (0-0.9); MONOCYTES % (AUTO) 8.5 % (2-12); NEUTROPHILS # (AUTO) 5.5 X10'3 (1.8-7.7); NEUTROPHILS % (AUTO) 79.4 % (42-75); PLATELET COUNT 110 X10'3 (140-440); RED BLOOD COUNT 2.91 X10'6 (4.70-6.10); RED CELL DISTRIBUTION WIDTH 16.3 % (11.5-14.5)
[2021-12-23] MEDS: aspirin 81mg tab.chew PO SCH (08:04)
[2021-12-23 08:11] LABS: ALBUMIN 3.2 G/DL (3.4-5.0); ANION GAP 8 (8-16); BLOOD UREA NITROGEN 21 MG/DL (7-18); BUN/CREATININE RATIO 23.1 (5.4-32.0); CHLORIDE 98 MMOL/L (99-107); CREATININE 0.91 MG/DL (0.60-1.10); GLUCOSE 142 MG/DL (70-104); POTASSIUM 4.3 MMOL/L (3.5-5.1); SODIUM 136 MMOL/L (135-145); TOTAL CARBON DIOXIDE 29.7 MMOL/L (24-32); eGFR 81 ML/MIN
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
--- NOTE | 2021-12-23 18:10 | NUR ---
Received report from Swati in the ER at 1700. Patient was brought on the floor at 1745. Vitals were obtained and recorded.
--- NOTE | 2021-12-23 18:52 | NUR ---
Problems reprioritized. Patient report given, questions answered & plan of care reviewed with KADE Aguilar.
--- NOTE | 2021-12-23 19:06 | NUR ---
Patient in room PCU 3020. I have received report from KADE Victor and had the opportunity to ask questions and assume patient care.
[2021-12-23] MEDS: UMECLIDIN PO SCH (20:10)
[2021-12-23] MEDS: FLUTICASONE PO SCH (20:10)
[2021-12-23] MEDS: VILANTER PO SCH (20:10)
[2021-12-23] MEDS: rivaroxaban 20mg tablet PO SCH (21:18)
[2021-12-23] MEDS: atorvastatin 10mg tablet PO SCH (21:19)
[2021-12-23] MEDS: clonazePAM 1mg tablet PO PRN (21:37)
[2021-12-23] MEDS: ESZOPICLONE 3 MG PO PRN (22:28)
[2021-12-24] VITALS (7 sets, daily range): BP systolic 94–114; BP diastolic 62–76
[2021-12-24] MEDS: levoTHYROXINE 25mcg tablet PO SCH ×2 (03:26→05:00)
--- NOTE | 2021-12-24 06:47 | NUR ---
Patient in room PCU 3020. I have received report from Lauren BRAUN and had the opportunity to ask questions and assume patient care.
--- NOTE | 2021-12-24 06:53 | NUR ---
Problems reprioritized. Patient report given, questions answered & plan of care reviewed with KADE Mondragon.
[2021-12-24 06:57] LABS: ANION GAP 8 (8-16); BLOOD UREA NITROGEN 18 MG/DL (7-18); BUN/CREATININE RATIO 22.8 (5.4-32.0); CALCIUM 8.2 MG/DL (8.5-10.1); CHLORIDE 100 MMOL/L (99-107); CREATININE 0.79 MG/DL (0.60-1.10); GLUCOSE 91 MG/DL (70-104); POTASSIUM 4.5 MMOL/L (3.5-5.1); SODIUM 138 MMOL/L (135-145); eGFR > 90 ML/MIN
[2021-12-24] MEDS: JUVEN Smoothie Arginine/Glut./Ca2+Bmb (Juven 19.3pkt) 240ml cup PO SCH ×2 (07:30→17:34)
[2021-12-24] MEDS: furosemide 40mg/4ml inj IV SCH ×2 (08:00→20:00)
[2021-12-24] MEDS: magnesium Cl slow-release 64mg tablet PO SCH ×2 (08:00→20:55)
[2021-12-24] MEDS: potassium Cl 20 mEq SR tablet PO SCH ×2 (08:00→20:00)
[2021-12-24] MEDS: carvedilol 6.25mg tablet PO SCH ×2 (08:00→20:00)
[2021-12-24] MEDS: methadone 10mg tablet PO SCH ×2 (10:40→20:54)
[2021-12-24] MEDS: pantoprazole 40mg Tablet.DR PO SCH (10:41)
[2021-12-24] MEDS: ferrous gluconate 324mg tablet PO SCH (10:41)
[2021-12-24] MEDS: sennosides/docusate sodium tablet PO SCH ×2 (10:41→20:55)
[2021-12-24] MEDS: aspirin 81mg tab.chew PO SCH (10:41)
[2021-12-24] MEDS: tamsulosin 0.4mg capsule PO SCH (10:41)
[2021-12-24] MEDS: cholecalciferol (vitamin D3) 1,000 unit (25mcg) tablet PO SCH (10:41)
--- NOTE | 2021-12-24 18:05 | NUR ---
Problems reprioritized. Patient report given, questions answered & plan of care reviewed with Noemi BRANU.
--- NOTE | 2021-12-24 18:30 | NUR ---
Patient in room PCU 3020. I have received report from HALINA and had the opportunity to ask questions and assume patient care.
[2021-12-24] MEDS: rivaroxaban 20mg tablet PO SCH (18:44)
[2021-12-24] MEDS: UMECLIDIN PO SCH (19:47)
[2021-12-24] MEDS: VILANTER PO SCH (19:47)
[2021-12-24] MEDS: FLUTICASONE PO SCH (19:47)
[2021-12-24] MEDS: atorvastatin 10mg tablet PO SCH (20:55)
[2021-12-24] MEDS: ESZOPICLONE 3 MG PO PRN (20:55)
[2021-12-24] MEDS: clonazePAM 1mg tablet PO PRN (20:55)
[2021-12-25 02:00] VITALS: BP 96/69
[2021-12-25] MEDS: levoTHYROXINE 25mcg tablet PO SCH (05:23)
--- NOTE | 2021-12-25 06:29 | NUR ---
Problems reprioritized. Patient report given, questions answered & plan of care reviewed with
[2021-12-25 06:31] LABS: ANION GAP 6 (8-16); BLOOD UREA NITROGEN 16 MG/DL (7-18); BUN/CREATININE RATIO 23.5 (5.4-32.0); CALCIUM 8.1 MG/DL (8.5-10.1); CHLORIDE 98 MMOL/L (99-107); CREATININE 0.68 MG/DL (0.60-1.10); GLUCOSE 100 MG/DL (70-104); POTASSIUM 4.2 MMOL/L (3.5-5.1); SODIUM 134 MMOL/L (135-145); TOTAL CARBON DIOXIDE 30.1 MMOL/L (24-32); eGFR > 90 ML/MIN
--- NOTE | 2021-12-25 06:53 | NUR ---
Patient in room PCU 3020. I have received report from Fadia BRAUN and had the opportunity to ask questions and assume patient care.
[2021-12-25] MEDS: JUVEN Smoothie Arginine/Glut./Ca2+Bmb (Juven 19.3pkt) 240ml cup PO SCH (07:30)
[2021-12-25] MEDS: carvedilol 6.25mg tablet PO SCH (08:00)
[2021-12-25] MEDS: furosemide 40mg/4ml inj IV SCH (08:00)
[2021-12-25 08:36] VITALS: BP 92/66
[2021-12-25] MEDS: potassium Cl 20 mEq SR tablet PO SCH (09:38)
[2021-12-25] MEDS: methadone 10mg tablet PO SCH (09:38)
[2021-12-25] MEDS: ferrous gluconate 324mg tablet PO SCH (09:39)
[2021-12-25] MEDS: aspirin 81mg tab.chew PO SCH (09:39)
[2021-12-25] MEDS: rivaroxaban 20mg tablet PO SCH (09:39)
[2021-12-25] MEDS: pantoprazole 40mg Tablet.DR PO SCH (09:39)
[2021-12-25] MEDS: sennosides/docusate sodium tablet PO SCH (09:39)
[2021-12-25] MEDS: magnesium Cl slow-release 64mg tablet PO SCH (09:39)
[2021-12-25] MEDS: tamsulosin 0.4mg capsule PO SCH (09:40)
[2021-12-25] MEDS: cholecalciferol (vitamin D3) 1,000 unit (25mcg) tablet PO SCH (09:41)
[2021-12-25 10:00] VITALS: BP 98/78
[2021-12-25 11:00] VITALS: BP 105/74
[2021-12-25] MEDS ORDERED: ASPI81TA53 PO (14:03)
[2021-12-25] MEDS ORDERED: potassium cl 10mEq ER tablet PO (14:03)
[2021-12-25] MEDS ORDERED: COR3.125T PO (14:03)
[2021-12-25] MEDS ORDERED: FURO20TA4 PO (14:03)
[2021-12-25] MEDS ORDERED: WALK1EAC55 MC (14:06)
[2021-12-25 14:53] VITALS: BP 104/74
--- NOTE | 2021-12-25 15:07 | NUR ---
Called [facility] in [place] - spoke with pharmacist: 4 rx called in over phone, coreg, aspirin, lasix, and k-dur.
--- NOTE | 2021-12-25 15:57 | NUR ---
[place] documentation: I have reviewed and agree with all interventions, assessments performed and documented by KADE Castaneda.
--- NOTE | 2021-12-25 16:01 | NUR ---
Patient taken via wheelchair to private vehicle with personal belongings, discharge instructions given with understanding verbalized. Valve ID cards x 3 given to pt. PIV left hand discontinued intact, patient tolerated. Condition stable. Tele box removed and returned to television picture tube rebuilder monitor.
[2021-12-25] MEDS ORDERED: carVEDilol 3.125mg tablet PO SCH (20:00)
[2021-12-26] MEDS ORDERED: furosemide 20MG tablet PO SCH (08:00)
[2021-12-26] MEDS ORDERED: potassium chloride 10mEq ER tablet PO SCH (08:00)
== END 2021-12-25 15:23 | disposition home or self-care (01) | DRG 220 ==
LOC: PAS IN 06:55 → CICU 2S 15:04 → PCU 3S 12-20 13:37
PROVIDERS: ADMIT Thoracic Surgery (Cardiothoracic Vascular Surgery); ATTEND Thoracic Surgery (Cardiothoracic Vascular Surgery)
PROC: 02UJ08Z Supplement Tricuspid Valve with Zooplastic Tissue, Open Approach (ICD-10-PCS; 2021-12-18)
PROC: 02BG0ZZ Excision of Mitral Valve, Open Approach (ICD-10-PCS; 2021-12-18)
PROC: 02RF08Z Replacement of Aortic Valve with Zooplastic Tissue, Open Approach (ICD-10-PCS; 2021-12-18)
PROC: B24BZZ4 Ultrasonography of Heart with Aorta, Transesophageal (ICD-10-PCS; 2021-12-18)
PROC: 5A1221Z Performance of Cardiac Output, Continuous (ICD-10-PCS; 2021-12-18)
PROC: 30233R1 Transfusion of Nonautologous Platelets into Peripheral Vein, Percutaneous Approach (ICD-10-PCS; 2021-12-18)
PROC: 30233N1 Transfusion of Nonautologous Red Blood Cells into Peripheral Vein, Percutaneous Approach (ICD-10-PCS; 2021-12-18)
PROC: 02UG08Z Supplement Mitral Valve with Zooplastic Tissue, Open Approach (ICD-10-PCS; principal; 2021-12-18 10:40)
DX: I08.3 Combined rheumatic disorders of mitral, aortic and tricuspid valves (principal); D62 Acute posthemorrhagic anemia; I48.20 Chronic atrial fibrillation, unspecified; I42.9 Cardiomyopathy, unspecified; I27.20 Pulmonary hypertension, unspecified; I11.0 Hypertensive heart disease with heart failure; D69.6 Thrombocytopenia, unspecified; Z60.2 Problems related to living alone; J44.9 Chronic obstructive pulmonary disease, unspecified; K21.9 Gastro-esophageal reflux disease without esophagitis; E03.9 Hypothyroidism, unspecified; I50.9 Heart failure, unspecified; G89.29 Other chronic pain; M54.50 Low back pain, unspecified; M79.605 Pain in left leg; R00.1 Bradycardia, unspecified; Z85.850 Personal history of malignant neoplasm of thyroid
CPT/HCPCS: 36415; 36430; 36600; 71045; 71046; 76376; 80048; 80053; 81003; 82330; 82435; 82803; 82947; 82948; 83036; 83735; 84100; 84132; 84295; 84443; 85007; 85018; 85025; 85027; 85347; 85384; 85610; 85730; 86885; 86900; 86901; 86920; 87081; 88300; 93005; 93312; 93325; 94002; 94003; 94010; 94640; 94760; 97110; 97116; 97161; 97530; A4333; A4615; A4618; A6258; A6402; A6449; A7000; A7048; C1751; G0378; J0171; J0690; J1250; J1644; J1815; J1940; J2060; J2150; J2250; J2270; J2405; J2704; J2765; J3370; J3475; J3480; J3490; J7030; J7040; J7050; J7060; J7120; P9016; P9035; P9045; P9047

== ENCOUNTER 2023-01-01 12:27 | Outpatient (CLI) | payer OTHER ==
[~2023-01-01 12:27] MED LIST changes: +ALEN70TA80 PO; +ASPI81TA53 PO; -BUDE10.22 INH; +CHOL100046 PO; -DOCUMENT DATE & TIME OF BETA-BLOCKER PO ONE; -ESZO3TAB44 PO; +IPRA3AMP9 NEB; -LIDO700A47 TOP; -NITR0.4T48 SL; +POTA-188 PO; -POTASSIUM CHLORIDE PO; +SACU1TAB PO; -VITAMIN D PO; +ZOLP10TA PO; -ceFAZolin 1000mg inj ONE; -ceFAZolin inj. 2,000 MG in dextrose 5%-water 100 ML IV ONE; -epiNEPHrine 1 mg/ml inj ONE; -famotidine 20mg tablet PO ONE; -gabapentin 300mg capsule PO ONE; -mupirocin 2% nasal ointment 1gm UD NS ONE; -ringers solution, lacted 1,000 ML IV SCH; -vancomycin/NS 1 GM in NS 250 ML IV ONE
== END 2023-01-01 23:59 | disposition home or self-care (01) ==
LOC: CARD DIAG 12:27
PROVIDERS: ATTEND Chiropractor
DX: I08.8 Other rheumatic multiple valve diseases (principal); I25.10 Atherosclerotic heart disease of native coronary artery without angina pectoris
CPT/HCPCS: 93306

== ENCOUNTER 2023-03-26 13:05 | Emergency (ER) | payer OTHER, MEDICARE, BC ==
[~2023-03-26] VITALS: Ht 172.7 cm; Wt 67.3 kg
[~2023-03-26 13:05] MED LIST changes: +CELE-127 PO; -CELE-85 PO
[2023-03-26 13:17] VITALS: TEMP 97.8
[2023-03-26 17:26] VITALS: BP 96/74; PULSE 77; RESP 16; O2SAT 95
--- NOTE | 2023-03-26 18:01 | NUR ---
GENERAL CARGO CLERK CHARTING REVIEWED BY CHARGE, RN
== END 2023-03-26 18:02 | disposition home or self-care (01) ==
LOC: ER 13:06
DX: R04.0 Epistaxis (principal); I11.0 Hypertensive heart disease with heart failure; G89.29 Other chronic pain; M54.9 Dorsalgia, unspecified; Z79.899 Other long term (current) drug therapy; Z88.8 Allergy status to other drugs, medicaments and biological substances; Z79.1 Long term (current) use of non-steroidal anti-inflammatories (NSAID)
CPT/HCPCS: 99281